=== PATIENT | female | born 1990 | race Two or more races ===

== ENCOUNTER 2021-06-26 12:31 | Emergency (ER) | payer OTHER ==
[~2021-06-26] VITALS: Ht 160 cm; Wt 71.2 kg
[2021-06-26] MEDS ORDERED: PRENA1 TRUE CO1 EACH PO (12:36)
== END 2021-06-26 17:26 | disposition home or self-care (01) ==
LOC: ER 12:31
DX: O20.8 Other hemorrhage in early pregnancy (principal); Z3A.13 13 weeks gestation of pregnancy

== ENCOUNTER 2021-09-16 18:00 | Outpatient (CLI) | payer OTHER ==
[~2021-09-16 18:00] MED LIST: PRENA1 TRUE CO1 EACH PO
== END 2021-09-16 18:17 | disposition home or self-care (01) ==
LOC: NST 18:00
PROVIDERS: ATTEND Obstetrics & Gynecology
DX: Z34.82 Encounter for supervision of other normal pregnancy, second trimester (principal)

== ENCOUNTER 2021-11-10 14:53 | Outpatient (CLI) | payer OTHER | END 2021-11-10 16:15 | disposition home or self-care (01) | LOC: NST 14:53 | PROVIDERS: ATTEND Obstetrics & Gynecology | DX: Z34.83 Encounter for supervision of other normal pregnancy, third trimester (principal) ==

== ENCOUNTER 2021-12-26 12:37 | Inpatient (IN) | payer OTHER ==
[~2021-12-26] VITALS: Ht 152.4 cm; Wt 3.6 kg
== END 2022-01-15 12:09 | disposition home or self-care (01) | DRG 788 ==
LOC: OB/GYN 01-12 11:12 → LDR 01-12 11:12 → OB/GYN 01-12 12:36
PROVIDERS: ADMIT Obstetrics & Gynecology; ATTEND Obstetrics & Gynecology
PROC: 0UB90ZZ Excision of Uterus, Open Approach (ICD-10-PCS; 2022-01-12)
PROC: 4A1HXCZ Monitoring of Products of Conception, Cardiac Rate, External Approach (ICD-10-PCS; 2022-01-12)
PROC: 10D00Z1 Extraction of Products of Conception, Low, Open Approach (ICD-10-PCS; principal; 2022-01-12 20:30)
DX: O62.0 Primary inadequate contractions (principal); O34.13 Maternal care for benign tumor of corpus uteri, third trimester; D25.9 Leiomyoma of uterus, unspecified; Z3A.40 40 weeks gestation of pregnancy; Z37.0 Single live birth; Z20.822 Contact with and (suspected) exposure to COVID-19

== ENCOUNTER 2022-01-09 11:30 | Outpatient (CLI) | payer OTHER | END 2022-01-09 12:11 | disposition home or self-care (01) | LOC: NST 11:30 | PROVIDERS: ATTEND Obstetrics & Gynecology | DX: Z34.93 Encounter for supervision of normal pregnancy, unspecified, third trimester (principal) ==

== ENCOUNTER 2022-01-11 16:45 | Outpatient (CLI) | payer OTHER | END 2022-01-11 17:28 | disposition home or self-care (01) | LOC: NST 16:45 | PROVIDERS: ATTEND Obstetrics & Gynecology | DX: Z34.83 Encounter for supervision of other normal pregnancy, third trimester (principal) ==